=== PATIENT | male | born 1930 | race Caucasian/White ===

== ENCOUNTER → 2018-08-01 | Outpatient (CLI) | payer MEDICARE ==
[~2018-08-01] MED LIST: ALPR0.257 PO; ASPI-496 PO; FINA5TAB4 PO; LISI2.5T PO; TAMS0.4C2 PO
== END | disposition home or self-care (01) ==
LOC: CVU 08:48
PROVIDERS: ATTEND Internal Medicine Cardiovascular Disease
DX: I08.1 Rheumatic disorders of both mitral and tricuspid valves (principal)
CPT/HCPCS: 0399T; 93306